=== PATIENT | male | born 1975 | race Caucasian/White ===

== ENCOUNTER 2019-06-22 10:58 | Inpatient (IN) | payer OTHER ==
[~2019-06-22] VITALS: Ht 177.8 cm; Wt 185.0 kg
[2019-06-22 11:58] LABS: BASO # 0.1 (0.0-0.2); BASO % 0.7 % (0.0-2.0); EOS # 0.1 (0.0-0.7); EOS % 0.5 % (0-4.0); GRAN # 7.9 (1.4-6.5); GRAN % 79.1 % (42.2-75.2); HEMOGLOBIN 12.9 g/dl (13.5-18.0); LYMPH # 0.9 (1.2-3.4); LYMPH % 9.2 % (20.0-51.0); MEAN CELL VOLUME 106 fl (80.0-100.0); MEAN CORPUSCULAR HEMOGLOBIN 38 pg (27.0-31.0); MEAN CORPUSCULAR HGB CONC 36 g/dl (33.0-37.0); MEAN PLATELET VOLUME 12.9 fl (7.4-10.4); MONO % 9.7 % (1.7-9.3); RED BLOOD COUNT 3.41 M/mm3 (4.20-5.60)
[2019-06-22 12:00] VITALS: BP 127/88; PULSE 91; TEMP 98.5
[2019-06-22 12:02] LABS: HEMATOCRIT 36.2 % (42.0-52.0)
[2019-06-22 12:04] LABS: PLATELET COUNT 11 K/mm3 (130-400)
[2019-06-22 12:11] LABS: INR 1.3 (0.8-3.0); PROTHROMBIN TIME 14.3 SECONDS (9.7-12.8)
[2019-06-22 12:13] LABS: ALBUMIN 3.2 gm/dL (3.5-5.0); CALCIUM 8.6 mg/dL (8.4-10.2); CREATININE, serum 1.02 (0.66-1.25); TOTAL PROTEIN 7.4 gm/dL (6.4-8.2)
[2019-06-22 12:15] LABS: POTASSIUM 2.7 mmol/L (3.4-5.0)
[2019-06-22 12:17] LABS: IRON,SERUM 113 ug/dL (35-150)
[2019-06-22 12:26] LABS: TOTAL IRON BINDING CAPACITY 156 ug/dL (261-462)
[2019-06-22 17:32] VITALS: BP 101/60; PULSE 94; TEMP 98.6
--- NOTE | 2019-06-22 18:43 | NUR ---
Patient arrived to floorat approximately 1230. Patient has remained alert and oriented during the day, answers questions appropriately. Patient left the floor for CT via wheelchair, returned, and continued to deny needs. Patient was able to provide a stool sample that was collected and sent to lab. Urine is very dark brown. Patient denies further needs at this time, call light within reach
[2019-06-22 20:38] VITALS: BP 107/67; PULSE 89; TEMP 98.8
--- NOTE | 2019-06-22 21:45 | NUR ---
Resting in bed. Assessment complete. Lungs clear. Heart sounds normal. bowels active x4. Pulses present. Bilateral lower extremity edema +1. INT left AC without complications. Reports 4/10 back pain. Order obtained for 400mg ibuprofen from Dr. Shetty and provided to patient. Denies other needs. Call light in reach.
[2019-06-22 22:40] VITALS: BP 109/65; PULSE 97; TEMP 98.8
[2019-06-23] VITALS (11 sets, daily range): BP systolic 102–136; BP diastolic 65–85; PULSE 87–101; TEMP 97.3–99
--- NOTE | 2019-06-23 01:00 | NUR ---
Resting in bed. Denies needs. Call light in reach.
--- NOTE | 2019-06-23 03:45 | NUR ---
Reports 5/10 back pain. Provided with PRN ibuprofen. Denies other needs at this time. Call light in reach.
[2019-06-23 04:52] LABS: CERULOPLASMIN 47 mg/dL (20-60)
[2019-06-23 05:24] LABS: FOLATE (FOLIC ACID) 4.1 ng/mL (>=4.0)
--- NOTE | 2019-06-23 06:34 | NUR ---
Patient required ibuprofen x2 for back pain. Otherwise uneventful night. Resting in bed this AM. Call light in reach.
--- NOTE | 2019-06-23 07:17 | NUR ---
Report given to RENETTA Somers
[2019-06-23 08:05] LABS: ALBUMIN 2.6 gm/dL (3.5-5.0); BILIRUBIN,TOTAL 17.1 mg/dL (0.0-1.0); CALCIUM 8.2 mg/dL (8.4-10.2); CREATININE, serum 0.87 (0.66-1.25); POTASSIUM 3.2 mmol/L (3.4-5.0); TOTAL PROTEIN 6.3 gm/dL (6.4-8.2)
[2019-06-23 08:09] LABS: BASO # 0.1 (0.0-0.2); BASO % 0.8 % (0.0-2.0); EOS # 0.1 (0.0-0.7); EOS % 1.3 % (0-4.0); GRAN # 5.4 (1.4-6.5); GRAN % 68.1 % (42.2-75.2); LYMPH # 1.5 (1.2-3.4); LYMPH % 18.5 % (20.0-51.0); MEAN CELL VOLUME 105 fl (80.0-100.0); MEAN CORPUSCULAR HGB CONC 36 g/dl (33.0-37.0); MONO # 0.9 (0.1-0.6); MONO % 10.7 % (1.7-9.3); RED BLOOD COUNT 2.87 M/mm3 (4.20-5.60); REDCELL DISTRIBUTION WIDTH-CV 15.9 % (11.5-14.5)
[2019-06-23 08:15] LABS: ALPHA 1 ANTITRYPSIN TOTAL 257.4 mg/dL (())
[2019-06-23 08:20] LABS: INR 1.3 (0.8-3.0); PROTHROMBIN TIME 14.5 SECONDS (9.7-12.8)
[2019-06-23 08:29] LABS: HEMATOCRIT 30.2 % (42.0-52.0); HEMOGLOBIN 10.8 g/dl (13.5-18.0); MEAN CORPUSCULAR HEMOGLOBIN 38 pg (27.0-31.0)
[2019-06-23 08:30] LABS: PLATELET COUNT 122 K/mm3 (130-400)
[2019-06-23 10:28] LABS: PERITONEAL -POLYMORPHONUCLEAR 17.3 % (0-25); PERITONEAL FLUID RBC 0 /mm3 (0-0)
--- NOTE | 2019-06-23 16:07 | NUR ---
TAMMI met with the patient to complete initial intake. The patient lives in [place] with his and their daughter. The patient has a CPAP and receives supplies from [facility]. The patient is independent with ADLs. The patient receives medical care and medications at [place] at this time. The patient does not have advanced directives in the EMR but was interested in DPOA-HC form. Form provided. The patient plans to return home at discharge with his providing transportation. Social serivces will continue to monitor for any discharge needs.
--- NOTE | 2019-06-23 20:16 | NUR ---
PATIENT IS ALERT AND ORIENTED. HAD PARACENTESIS FOR ASCITES DIAGNOSIS. COMPLAINED OF LOOSE STOOL. ON PRECAUTION FOR PENDING CDIFF. SCHEDULED FOR EGD AND COLONOSCOPY FOR 06/24/19. ON POTASSIUM PROTOCOL. LOW POTASSIUM 3.0-3.3 TODAY.
--- NOTE | 2019-06-23 20:57 | NUR ---
Reports 8 ABD pain. Provided with PRN morphine. Assessment complete. Lungs clear. Heart sounds normal. Bowels active x4. Pulses strong throughout. Bilateral lower extremity edema +1. INT left AC without complications. Bowel prep started. Denies other needs at this time. Will monitor.
--- NOTE | 2019-06-23 21:30 | NUR ---
Resting in bed. Denies needs. Call light in reach.
[2019-06-24] VITALS (15 sets, daily range): BP systolic 84–147; BP diastolic 37–93; PULSE 92–111; TEMP 97.9–99
--- NOTE | 2019-06-24 00:10 | NUR ---
Reports 8/ ABD pain. Provided with PRN morphine. Continues to work on bowel prep. Denies other needs at this time.
[2019-06-24 00:19] LABS: CLOSTRIDIUM DIFF A/B NEG; CLOSTRIDIUM DIFF A/B INTERP NonToxigenic C.diff
--- NOTE | 2019-06-24 04:41 | NUR ---
Resting in bed. Denies needs. Call light in reach.
[2019-06-24 06:00] LABS: BASO # 0.1 (0.0-0.2); BASO % 0.7 % (0.0-2.0); EOS # 0.1 (0.0-0.7); EOS % 1.1 % (0-4.0); GRAN # 5.8 (1.4-6.5); HEMOGLOBIN 11.1 g/dl (13.5-18.0); LYMPH # 1.6 (1.2-3.4); LYMPH % 18.8 % (20.0-51.0); MEAN CELL VOLUME 105 fl (80.0-100.0); MEAN CORPUSCULAR HEMOGLOBIN 38 pg (27.0-31.0); MEAN CORPUSCULAR HGB CONC 36 g/dl (33.0-37.0); MONO # 0.9 (0.1-0.6); MONO % 10.6 % (1.7-9.3); RED BLOOD COUNT 2.96 M/mm3 (4.20-5.60); REDCELL DISTRIBUTION WIDTH-CV 15.9 % (11.5-14.5)
[2019-06-24 06:01] LABS: HEMATOCRIT 31.2 % (42.0-52.0)
[2019-06-24 06:02] LABS: PLATELET COUNT 83 K/mm3 (130-400)
[2019-06-24 06:07] LABS: INR 1.3 (0.8-3.0); PROTHROMBIN TIME 14.7 SECONDS (9.7-12.8)
[2019-06-24 06:10] LABS: ALBUMIN 2.7 gm/dL (3.5-5.0); BILIRUBIN,TOTAL 19.1 mg/dL (0.0-1.0); CALCIUM 8.4 mg/dL (8.4-10.2); CREATININE, serum 0.81 (0.66-1.25); POTASSIUM 3.3 mmol/L (3.4-5.0); TOTAL PROTEIN 6.7 gm/dL (6.4-8.2)
--- NOTE | 2019-06-24 06:39 | NUR ---
Patient required x2 doses of morphine throughout night. Otherwise uneventful night. Resting in bed this AM. Call light in reach.
--- NOTE | 2019-06-24 07:00 | NUR ---
Report received from RENETTA Myers. pT in bed resting, up to bathroom ad michele to have BM. Completed bowel prep for 1200 EGD/Colon. IVF to LA/C. Resting quietly, tender abdomen to touch especially over liver area. PT is very jaundiced. Resting in bed, will continue to monitor.
--- NOTE | 2019-06-24 07:31 | NUR ---
Report given to RENETTA Ayala
--- NOTE | 2019-06-24 08:00 | NUR ---
Assessment charted. PRN ativan given d/t pt being awake all night with bowel prep, having some tremors and elevated HR. Pt agreeable to ativan. Will continue to monitor.
--- NOTE | 2019-06-24 12:26 | NUR ---
Pt arrived back to room at [facility] from EGD/Colonoscopy. Will get VSS and continue to monitor.
--- NOTE | 2019-06-24 13:13 | NUR ---
Pt called for help, upon entry pt states he is fine, no longer oriented, when asked where he was reply was "i don't know what planet this is", unable to give accurate date as well. Pt now wabbly when ambulating and appears shaking has increased as well. Will continue to monitor.
[2019-06-24 14:59] LABS: CALCIUM 8.2 mg/dL (8.4-10.2); CREATININE, serum 1.04 (0.66-1.25); POTASSIUM 4.1 mmol/L (3.4-5.0)
--- NOTE | 2019-06-24 15:42 | NUR ---
Pt is alert and oriented again, awake and resting, probably confusion was related to ativan, will continue to monitor.
--- NOTE | 2019-06-24 16:25 | NUR ---
[facility] contacted patient by phone as he is in contact precautions. SW addressed patient's alcohol abuse and he advised he is not interested in any resources or services at this time. Patient states "I'm good" and wants to know when he will be able to discharge. SW to continue to follow as needed.
--- NOTE | 2019-06-24 17:48 | NUR ---
Pt resting in bed, denies needs, remains oriented, will give bedside shift report to nightshift nurse who will resume care.
[2019-06-25] VITALS (11 sets, daily range): BP systolic 103–127; BP diastolic 63–78; PULSE 68–115; TEMP 97.6–98.8
--- NOTE | 2019-06-25 04:43 | NUR ---
PATIENT HAS BEEN UP A MAJORITY OF THE NIGHT GOING TO THE BATHROOM. PATIENT IS STILL HAVING SOME LOOSE STOOLS. AFTER SOME MOTRIN AND MORPHINE, HIS PAIN WAS A LITTLE BIT BETTER. PATIENT HAS BEEN SCORING A 4 ON THE CIWA PROTCOL AND NOT RECEVING ATIVAN. PATIENT HAS BEEN ORIENTATED ALL NIGHT LONG. PATIENT REQUESTS THAT THE DOOR BE SHUT BUT BED ALARM IS ON. PATIENT ATE A SANDWICH BOX IN DURING THE SHIFT BECAUSE HE WAS COMPLAINING HE WAS HUNGRY. CALLED FOR AN UPDATE ON THE PATIENT AND I ADVISED HER TO CALL BACK TO GET PERIODICAL UPDATES SINCE SHE SAYS HER IS NOT ALL WITH IT. TRIED TO EXPLAIN HIS SITUATION A COUPLE OF DIFFERENT TIMES BUT SHE KEPT ASKING THE SAME QUESTIONS EVEN AFTER GETTING AN ANSWER THE FIRST TIME. PATIENT DENIES ANY OTHER NEEDS AT THIS TIME AND WILL REPORT OFF TO DAY SHIFT UPON THEIR ARRIVAL
[2019-06-25 08:26] LABS: BASO # 0.1 (0.0-0.2); BASO % 0.6 % (0.0-2.0); EOS # 0.1 (0.0-0.7); EOS % 1.2 % (0-4.0); GRAN # 6.5 (1.4-6.5); GRAN % 73.1 % (42.2-75.2); HEMOGLOBIN 10.9 g/dl (13.5-18.0); LYMPH # 1.4 (1.2-3.4); LYMPH % 15.3 % (20.0-51.0); MEAN CELL VOLUME 106 fl (80.0-100.0); MEAN CORPUSCULAR HEMOGLOBIN 37 pg (27.0-31.0); MEAN CORPUSCULAR HGB CONC 35 g/dl (33.0-37.0); MONO # 0.8 (0.1-0.6); MONO % 8.7 % (1.7-9.3); PLATELET COUNT 99 K/mm3 (130-400); RED BLOOD COUNT 2.95 M/mm3 (4.20-5.60)
[2019-06-25 08:30] LABS: HEMATOCRIT 31.3 % (42.0-52.0)
[2019-06-25 08:47] LABS: ALBUMIN 2.7 gm/dL (3.5-5.0); BILIRUBIN,TOTAL 20.4 mg/dL (0.0-1.0); CALCIUM 8.3 mg/dL (8.4-10.2); CREATININE, serum 0.96 (0.66-1.25); INR 1.2 (0.8-3.0); POTASSIUM 3.6 mmol/L (3.4-5.0); PROTHROMBIN TIME 13.7 SECONDS (9.7-12.8); TOTAL PROTEIN 6.7 gm/dL (6.4-8.2)
--- NOTE | 2019-06-25 18:35 | NUR ---
Pt REPORT RECEIVED FROM SHANITA JACKSON AT BEDSIDE. Pt IS RESTING IN BED PEACEFULLY WITH TV ON. BED ALARM VERIFIED ACTIVATED. EDUCATION TO Pt ON IMPORTANCE OF USING CALL LIGHT TO NOTIFY STAFF OF HIS WANTS/NEEDS BEFORE GETTING OUT OF BED UNASSISTED TO REDUCE RISK OF FALLS AND INJURY. Pt STATES UNDERSTANDING. CALL LIGHT IS WITHIN REACH. WILL CONTINUE TO MONITOR.
[2019-06-26] VITALS (7 sets, daily range): BP systolic 107–137; BP diastolic 61–83; PULSE 50–101; TEMP 97.8–98.8
--- NOTE | 2019-06-26 01:13 | NUR ---
Pt has been consistent with use of call light to obtain assistance with am,bulating to the restroom secondary to fall risk. Pt remains on detox protocols with no s/s of distress noted this shift. Pt is A&Ox4 and is easily able to make his wants/needs known. Pt has had multiple bowel movements that have ranged from soft slightly formed/loose to fully formed with no liquid stool noted, no foamy stool noted, and no abnormally foul smelling stool noted. Pt bed alarm remains activated with this scientific writer monitoring to ensure that bed alarm remains on with rounding. Pt is cooperative with care and compliant with medication regimen. Pt remains in stable condition at this time with call light within reach and beverages on his bedside table within reach. Will continue to monitor.
--- NOTE | 2019-06-26 05:45 | NUR ---
Pt has been resting peacefully in bed throughout the shift with no s/s of distress nor symptoms of an adverse detox episode. Pt has remained compliant with call light system. Pt has had numerous bowel movements this shift and no diarrhea nor s/s of c-diff noted. Call light is at Pt side. Will continue to monitor.
--- NOTE | 2019-06-26 06:58 | NUR ---
Pt REPORT GIVEN TO HARLAN JACKSON AT BEDSIDE.
--- NOTE | 2019-06-26 07:30 | NUR ---
PT SET OFF BED ALARM, ENTERED ROOM AND PT WAS ATTEMPTING TO PULL OUT IV. PT SAID HE WAS LEAVING TODAY. I INFORMED HIM THE DOCTOR WOULD HAVE TO SEE HIM BEFORE DISCHARGE. HE SAT DOWN. RENETTA MATOS ENTERED AND PT STATED "THE SURGERY TECH ARE HERE TO PICK ME UP. THEY ARE HERE TO TAKE ME TO [facility]". PT EDUCATED THAT HE WOULD LEAVE IN AFTERNOON. ACCORDING TO RENETTA MATOS HE HAS NOT BEEN CONFUSED OR ACTING IMPULSIVE ALL OF [employer] CONSULT[employer].
--- NOTE | 2019-06-26 09:34 | NUR ---
PT ATTEMPTING TO TURN BED ALARM OFF, DOES NOT USE CALL LIGHT, GETS UP ON HIS OWN. PT STEADY ON HIS FEET. APPEARS CONFUSED. CAME OUT OF ROOM SAYING HE NEEDED TO LEAVE TO GET TO HIS DAUGHTERS BASEBALL GAME. PT REPORTING SOFT FORMED STOOLS. PT JAUNDICED, HR TACHYCARDIC, NO OTHER NEEDS AT THIS TIME. FRESH SPRITE BROUGHT IN, MEDS GIVEN, ASSESSMENT PERFORMED.
[2019-06-26 10:07] LABS: HEMOGLOBIN 10.9 g/dl (13.5-18.0); MEAN CELL VOLUME 107 fl (80.0-100.0); MEAN CORPUSCULAR HEMOGLOBIN 38 pg (27.0-31.0); MEAN CORPUSCULAR HGB CONC 35 g/dl (33.0-37.0); PLATELET COUNT 110 K/mm3 (130-400); RED BLOOD COUNT 2.89 M/mm3 (4.20-5.60); REDCELL DISTRIBUTION WIDTH-CV 16.2 % (11.5-14.5)
[2019-06-26 10:15] LABS: CALCIUM 8.1 mg/dL (8.4-10.2); CREATININE, serum 0.85 (0.66-1.25); POTASSIUM 3.2 mmol/L (3.4-5.0)
[2019-06-26 11:30] LABS: ANISOCYTOSIS 1+; BAND 7 % (0-10); LYMPHOCYTE 14 % (20.0-51.0); NEUTROPHILS 77 % (42.0-75.2); PLATELET ESTIMATE DECREASED (NORMAL)
[2019-06-26] MEDS ORDERED: PROTONIX 40MG T40 MG PO (11:42)
[2019-06-26] MEDS ORDERED: FOLIC ACID 11 MG/TA1 PO (11:42)
[2019-06-26] MEDS ORDERED: THIAMINE 1100 MG/TAB PO (11:43)
[2019-06-26] MEDS ORDERED: FLAGYL500 MG PO (11:44)
--- NOTE | 2019-06-26 12:34 | NUR ---
PT LEFT ON FOOT, REFUSED WHEELCHAIR, TOOK BELONGINGS, EXITED THROUGH ER. DISCHARGE PAPERWORK GIVEN, EDUCATION PROVIDED, IV D/C
[2019-06-27 12:28] LABS: ANTISMOOTH MUSCLE ANTIBODY Negative (Negative)
== END 2019-06-26 12:36 | disposition home or self-care (01) | DRG 433 ==
LOC: MEDICAL 10:58
PROVIDERS: Internal Medicine; Internal Medicine Gastroenterology; Physician Assistant; Student in an Organized Health Care Education/Training Program; ADMIT Hospitalist
PROC: 0W9G3ZX Drainage of Peritoneal Cavity, Percutaneous Approach, Diagnostic (ICD-10-PCS; 2019-06-23)
PROC: 0DBL8ZZ Excision of Transverse Colon, Via Natural or Artificial Opening Endoscopic (ICD-10-PCS; principal; 2019-06-24 12:00)
PROC: 0DBE8ZX Excision of Large Intestine, Via Natural or Artificial Opening Endoscopic, Diagnostic (ICD-10-PCS; 2019-06-24 12:00)
DX: K70.11 Alcoholic hepatitis with ascites (principal); E87.3 Alkalosis; E87.1 Hypo-osmolality and hyponatremia; K76.0 Fatty (change of) liver, not elsewhere classified; I10 Essential (primary) hypertension; F10.10 Alcohol abuse, uncomplicated; E87.6 Hypokalemia; D12.3 Benign neoplasm of transverse colon; K64.0 First degree hemorrhoids; D69.6 Thrombocytopenia, unspecified; D53.9 Nutritional anemia, unspecified; E83.119 Hemochromatosis, unspecified; K21.9 Gastro-esophageal reflux disease without esophagitis; R16.0 Hepatomegaly, not elsewhere classified; R68.81 Early satiety; E87.8 Other disorders of electrolyte and fluid balance, not elsewhere classified; R53.81 Other malaise; R19.7 Diarrhea, unspecified; F17.290 Nicotine dependence, other tobacco product, uncomplicated; Z89.022 Acquired absence of left finger(s)
CPT/HCPCS: 99223-AI; 99232-AI; 99233-AI; 99239; J2060; J2270; J2704; J2765; J3430; J3480; J7030; J7131; Q9967

== ENCOUNTER → 2019-08-01 | Outpatient (CLI) | payer OTHER ==
[~2019-08-01] VITALS: Ht 175.3 cm; Wt 89.1 kg
[~2019-08-01] MED LIST: ALDACTONE 25MG25 M1 PO; DILAUDID 2MG TAB2 MG PO; FLAGYL500 MG PO; FOLIC ACID 11 MG/TA1 PO; LASIX 40MG TABL40 MG PO; NATURE'S BLEND100 M2 PO; NORVASC 5MG5 MG/TAB PO; PROTONIX 40MG T40 MG PO; QUESTRAN LI4 GM/5 GM PO; QUESTRAN4 GM/9 GM PO; THIAMINE 1100 MG/TAB PO; VIAGRA100 M1; ZOLOFT 25MG25 MG PO; ZYRTEC 10MG10 MG PO
[2019-08-01 13:51] VITALS: BP 121/76; PULSE 106
[2019-08-01 15:15] VITALS: BP 113/71; PULSE 88
[2019-08-01 16:46] LABS: PERITONEAL -POLYMORPHONUCLEAR 14.9 % (0-25); PERITONEAL FLUID RBC 0 /mm3 (0-0)
== END ==
LOC: COL.RAD 13:35
PROVIDERS: Internal Medicine Gastroenterology
DX: R18.8 Other ascites (principal)

== ENCOUNTER 2019-08-16 08:36 | Outpatient (CLI) | payer OTHER ==
[~2019-08-16] VITALS: Ht 175.3 cm; Wt 85.1 kg
[2019-08-16 08:49] VITALS: BP 131/83; PULSE 102
[2019-08-16 10:39] VITALS: BP 109/73; PULSE 88; TEMP 97.8
[2019-08-16 11:03] LABS: PERITONEAL -POLYMORPHONUCLEAR 13.9 % (0-25); PERITONEAL FLUID RBC 0 /mm3 (0-0)
== END 2019-08-16 15:30 | disposition home or self-care (01) ==
LOC: COL.RAD 08:36
PROVIDERS: Internal Medicine Gastroenterology
DX: K70.11 Alcoholic hepatitis with ascites (principal)
CPT/HCPCS: P9047

== ENCOUNTER → 2019-08-29 | Outpatient (CLI) | payer OTHER ==
[~2019-08-29] VITALS: Ht 175.3 cm; Wt 80.7 kg
[2019-08-29 12:11] VITALS: BP 116/81; PULSE 96
--- NOTE | 2019-08-29 12:24 | NUR ---
PT TAKEN BACK FOR PROCEDURE. REFUSED ALBUMIN INFUSION
[2019-08-29 13:22] VITALS: BP 115/72; PULSE 97
--- NOTE | 2019-08-29 13:40 | NUR ---
PT WAS TAKEN TO POV AND FRIEND DROVE HOME
[2019-08-29 14:48] LABS: PERITONEAL -POLYMORPHONUCLEAR 13.6 % (0-25); PERITONEAL FLUID RBC 0 /mm3 (0-0)
== END ==
LOC: COL.RAD 11:44
PROVIDERS: Internal Medicine Gastroenterology
DX: K70.11 Alcoholic hepatitis with ascites (principal)
CPT/HCPCS: 19804

== ENCOUNTER → 2019-09-08 | Outpatient (CLI) | payer OTHER ==
[~2019-09-08] VITALS: Ht 175.3 cm; Wt 75.4 kg
[2019-09-08 12:14] VITALS: BP 108/69; PULSE 111
[2019-09-08 13:15] VITALS: BP 98/56; PULSE 97
[2019-09-08 13:36] LABS: PERITONEAL -POLYMORPHONUCLEAR 9.3 % (0-25); PERITONEAL FLUID RBC 0 /mm3 (0-0)
== END ==
LOC: COL.RAD 11:53
PROVIDERS: Internal Medicine Gastroenterology
DX: K70.11 Alcoholic hepatitis with ascites (principal)

== ENCOUNTER 2019-09-19 12:01 | Outpatient (CLI) | payer OTHER ==
[~2019-09-19] VITALS: Ht 175.3 cm; Wt 72.6 kg
[2019-09-19 12:12] VITALS: BP 110/65; PULSE 101
[2019-09-19 13:29] LABS: PERITONEAL -POLYMORPHONUCLEAR 14.8 % (0-25); PERITONEAL FLUID RBC 1000 /mm3 (0-0)
[2019-09-19 14:54] VITALS: BP 101/54; PULSE 87
== END 2019-09-19 15:15 | disposition home or self-care (01) ==
LOC: COL.RAD 12:01
PROVIDERS: Internal Medicine Gastroenterology
DX: K70.11 Alcoholic hepatitis with ascites (principal)
CPT/HCPCS: P9047

== ENCOUNTER 2019-09-28 11:49 | Outpatient (CLI) | payer OTHER ==
[~2019-09-28] VITALS: Ht 175.3 cm; Wt 73.1 kg
[2019-09-28 12:00] VITALS: BP 106/67; PULSE 101
[2019-09-28 13:09] LABS: PERITONEAL -POLYMORPHONUCLEAR 15.9 % (0-25); PERITONEAL FLUID RBC 1000 /mm3 (0-0)
[2019-09-28 13:15] VITALS: BP 106/54; PULSE 72
--- NOTE | 2019-09-28 13:15 | NUR ---
Guerita JACKSON inserted 22 gauge IV to right FA.
--- NOTE | 2019-09-28 13:51 | NUR ---
INT discontinued intact by Guerita JACKSON
== END 2019-09-28 13:51 | disposition home or self-care (01) ==
LOC: COL.RAD 11:49
PROVIDERS: Internal Medicine Gastroenterology
DX: K70.11 Alcoholic hepatitis with ascites (principal)
CPT/HCPCS: P9047

== ENCOUNTER 2019-10-11 08:57 | Outpatient (CLI) | payer OTHER ==
[~2019-10-11] VITALS: Ht 175.3 cm; Wt 72.3 kg
[2019-10-11] MEDS ORDERED: LOMOTIL 0.025 M1 TAB PO (09:10)
[2019-10-11] MEDS ORDERED: KLOR-CON SPRIN10 MEQ PO (09:13)
[2019-10-11 09:15] VITALS: BP 119/67; PULSE 107
[2019-10-11 10:54] VITALS: BP 107/69; PULSE 82; TEMP 98.4
[2019-10-11 11:16] LABS: PERITONEAL -POLYMORPHONUCLEAR 9.2 % (0-25); PERITONEAL FLUID RBC 0 /mm3 (0-0)
== END 2019-10-11 15:02 | disposition home or self-care (01) ==
LOC: COL.RAD 08:57
PROVIDERS: Internal Medicine Gastroenterology
DX: K70.11 Alcoholic hepatitis with ascites (principal)
CPT/HCPCS: P9047

== ENCOUNTER 2019-10-26 08:02 | Outpatient (CLI) | payer OTHER ==
[~2019-10-26] VITALS: Ht 175.3 cm; Wt 73.4 kg
[~2019-10-26 08:02] MED LIST changes: +KLOR-CON SPRIN10 MEQ PO; +LOMOTIL 0.025 M1 TAB PO
[2019-10-26 08:18] VITALS: BP 100/68; PULSE 89
[2019-10-26 09:33] VITALS: BP 98/58; PULSE 90; TEMP 98.9
[2019-10-26 09:56] LABS: PERITONEAL FLUID RBC 0 /mm3 (0-0)
== END 2019-10-26 10:54 | disposition home or self-care (01) ==
LOC: COL.RAD 08:02
PROVIDERS: Internal Medicine Gastroenterology
DX: K70.11 Alcoholic hepatitis with ascites (principal)
CPT/HCPCS: P9047

== ENCOUNTER 2019-11-10 11:43 | Outpatient (CLI) | payer OTHER ==
[~2019-11-10] VITALS: Ht 175.3 cm; Wt 71.9 kg
[2019-11-10 12:00] VITALS: BP 107/58; PULSE 83
[2019-11-10 14:35] VITALS: BP 90/56; PULSE 73; TEMP 98.8
[2019-11-10 16:15] VITALS: BP 95/61
== END 2019-11-10 16:22 | disposition home or self-care (01) ==
LOC: COL.RAD 11:43
DX: K70.11 Alcoholic hepatitis with ascites (principal)
CPT/HCPCS: P9047

== ENCOUNTER 2019-11-18 12:50 | Outpatient (CLI) | payer OTHER ==
[~2019-11-18] VITALS: Ht 175.3 cm; Wt 63.2 kg
[2019-11-18] MEDS ORDERED: ELIQUIS 5MG PO (12:58)
[2019-11-18] MEDS ORDERED: LOMOTIL 0.025 M1 TAB PO (13:00)
[2019-11-18] MEDS ORDERED: NICODERM C21 MG/PATC TD (13:01)
[2019-11-18 13:04] VITALS: BP 109/69; PULSE 69
[2019-11-18 14:58] VITALS: BP 91/59; PULSE 89
== END 2019-11-18 15:50 | disposition home or self-care (01) ==
LOC: COL.RAD 12:50
DX: K70.11 Alcoholic hepatitis with ascites (principal)
CPT/HCPCS: P9047

== ENCOUNTER 2019-11-25 11:43 | Outpatient (CLI) | payer OTHER ==
[~2019-11-25] VITALS: Ht 175.3 cm; Wt 68.0 kg
[2019-11-25 12:07] VITALS: BP 108/64; PULSE 108
[2019-11-25 14:02] VITALS: BP 123/68; PULSE 98; TEMP 97.5
== END 2019-11-25 19:03 | disposition home or self-care (01) ==
LOC: COL.RAD 11:43
DX: K70.11 Alcoholic hepatitis with ascites (principal)
CPT/HCPCS: P9047

== ENCOUNTER → 2019-11-25 | Outpatient (CLI) | payer OTHER ==
[~2019-11-25] MED LIST changes: +ELIQUIS 5MG PO; +NICODERM C21 MG/PATC TD
[2019-11-25 13:55] LABS: PERITONEAL FLUID RBC 1000 /mm3 (0-0)
== END | disposition still patient (30) ==
LOC: COL.RAD 08:00 → EUO 13:30 → COL.RAD 12-02 12:00
PROVIDERS: Internal Medicine Gastroenterology
DX: K70.11 Alcoholic hepatitis with ascites (principal)

== ENCOUNTER → 2019-12-12 | Outpatient (CLI) | payer OTHER ==
[~2019-12-12] VITALS: Ht 175.3 cm; Wt 66.9 kg
[2019-12-12 11:57] VITALS: BP 115/64; PULSE 118
[2019-12-12 13:25] VITALS: BP 123/80; PULSE 110
[2019-12-12 13:36] LABS: PERITONEAL -POLYMORPHONUCLEAR 20.5 % (0-25); PERITONEAL FLUID RBC 0 /mm3 (0-0)
== END ==
LOC: COL.RAD 11:42
PROVIDERS: Internal Medicine Gastroenterology
DX: K70.11 Alcoholic hepatitis with ascites (principal)

== ENCOUNTER → 2019-12-19 | Outpatient (CLI) | payer OTHER ==
[~2019-12-19] VITALS: Ht 175.3 cm; Wt 65.3 kg
[2019-12-19 11:41] VITALS: BP 100/50; PULSE 103
--- NOTE | 2019-12-19 12:12 | NUR ---
Procedure cancelled, not enough fluid in abdomen to drain. Pt out to car per ambulation.
== END ==
LOC: COL.RAD 11:29
DX: K70.11 Alcoholic hepatitis with ascites (principal)

== ENCOUNTER → 2019-12-26 | Outpatient (CLI) | payer OTHER ==
[~2019-12-26] VITALS: Ht 175.3 cm; Wt 67.1 kg
[2019-12-26 11:56] VITALS: BP 113/58; PULSE 111
--- NOTE | 2019-12-26 12:17 | NUR ---
pt back to holding area not enough fluid to drain. Pt encouraged to call doctor and see if can be seen sooner. Pt out to car per ambulation.
--- NOTE | 2019-12-26 13:27 | NUR ---
Dr Gómezs office notified of pts status and asked if they could push up his appt due to pts condition. Informed of not draining any fluid from abdomen for the past two weeks and his decreasing O2 sats. Reported pt is not eating or drinking much and when he does he vomits almost immediately after. Informed of dizzines upon standing. Staff stated they would talk to Dr Gómez and see about getting him earlier if possible. Called and informed pt of Dr Gómez's office possibly calling to get him in earlier.
== END ==
LOC: COL.RAD 11:35
DX: K70.11 Alcoholic hepatitis with ascites (principal)

== ENCOUNTER 2020-01-02 11:28 | Outpatient (CLI) | payer OTHER ==
[~2020-01-02] VITALS: Ht 175.3 cm; Wt 71.7 kg
[2020-01-02 11:43] VITALS: BP 127/74; PULSE 100
[2020-01-02 12:47] VITALS: BP 121/74; PULSE 98
[2020-01-02 13:23] LABS: PERITONEAL -POLYMORPHONUCLEAR 11.1 % (0-25); PERITONEAL FLUID RBC 0 /mm3 (0-0)
== END 2020-01-03 16:13 ==
LOC: COL.RAD 11:28
PROVIDERS: Internal Medicine Gastroenterology
DX: K70.11 Alcoholic hepatitis with ascites (principal)

== ENCOUNTER → 2020-01-09 | Outpatient (CLI) | payer OTHER ==
[~2020-01-09] VITALS: Ht 175.3 cm; Wt 67.2 kg
[2020-01-09 12:08] VITALS: BP 113/64; PULSE 108
[2020-01-09 22:17] LABS: PERITONEAL -POLYMORPHONUCLEAR 12.2 % (0-25); PERITONEAL FLUID RBC 1000 /mm3 (0-0)
== END ==
LOC: COL.RAD 11:45
PROVIDERS: Internal Medicine Gastroenterology
DX: K70.11 Alcoholic hepatitis with ascites (principal)

== ENCOUNTER → 2020-01-16 | Outpatient (CLI) | payer OTHER ==
[~2020-01-16] VITALS: Ht 175.3 cm; Wt 68.5 kg
[2020-01-16 11:44] VITALS: BP 116/76; PULSE 111
[2020-01-16 13:05] VITALS: BP 127/73; PULSE 108
[2020-01-16 13:23] LABS: PERITONEAL -POLYMORPHONUCLEAR 10.7 % (0-25); PERITONEAL FLUID RBC 0 /mm3 (0-0)
== END ==
LOC: COL.RAD 11:27
PROVIDERS: Internal Medicine Gastroenterology
DX: K70.11 Alcoholic hepatitis with ascites (principal)

== ENCOUNTER 2020-01-23 18:24 | Inpatient (IN) | payer OTHER ==
[~2020-01-23] VITALS: Ht 175.3 cm; Wt 64.1 kg
[2020-01-23 19:15] LABS: INR 1.7 (0.8-3.0); PROTHROMBIN TIME 19.2 SECONDS (9.7-12.8)
[2020-01-23 19:19] LABS: ALBUMIN 3.1 gm/dL (3.5-5.0); BILIRUBIN,TOTAL 4.7 mg/dL (0.0-1.0); C-REACTIVE PROTEIN 1.5 mg/dL (0.0-0.9); CALCIUM 8.7 mg/dL (8.4-10.2); CREATININE, serum 2.48 (0.66-1.25); POTASSIUM 3.9 mmol/L (3.4-5.0); TOTAL PROTEIN 8.6 gm/dL (6.4-8.2)
[2020-01-23 19:54] LABS: BASO % 0.7 % (0.0-2.0); EOS # 0.1 (0.0-0.7); GRAN # 2.6 (1.4-6.5); GRAN % 58.8 % (42.2-75.2); LYMPH # 1.1 (1.2-3.4); LYMPH % 24.4 % (20.0-51.0); MEAN CELL VOLUME 115 fl (80.0-100.0); MEAN CORPUSCULAR HGB CONC 32 g/dl (33.0-37.0); MONO # 0.6 (0.1-0.6); MONO % 12.9 % (1.7-9.3); PLATELET COUNT 166 K/mm3 (130-400); RED BLOOD COUNT 1.38 M/mm3 (4.20-5.60); REDCELL DISTRIBUTION WIDTH-CV 21.1 % (11.5-14.5)
[2020-01-23 20:27] LABS: HEMOGLOBIN 5.1 g/dl (13.5-18.0); MEAN CORPUSCULAR HEMOGLOBIN 37 pg (27.0-31.0)
[2020-01-23 20:28] LABS: HEMATOCRIT 15.9 % (42.0-52.0)
[2020-01-23 22:22] VITALS: BP 97/60; PULSE 92; TEMP 98
[2020-01-23 22:30] VITALS: BP 100/59; PULSE 88
[2020-01-23 22:45] VITALS: BP 98/63; PULSE 91; TEMP 99
[2020-01-23 22:58] VITALS: BP 108/65; PULSE 93; TEMP 97.8
[2020-01-23 23:00] VITALS: BP 108/65; PULSE 97; TEMP 97.8
--- NOTE | 2020-01-23 23:30 | NUR ---
Pt arrived to medical unit room 310 from ED at 2245. PRBCs infusing to left AC IV at 100 ml/hr upon arrival. Report received from ED RN, reported vitals have remained stable over course of transfusion. Vitals stable at this time and rate increased to 150 ml/hr. Heart RRR, lungs CTA, A&Ox4. Abdomen firm and distended. Pt reports constant chronic abdominal pain. Redness noted to scrotum with light reddened areas bilaterally to lower back/hip. Pt reports pruritus over entire body, worse in reddened areas. Oriented pt to room, admission assessments and med rec completed. Dynamap set up to record vitals Q15min. Call light in reach. Will continue to monitor.
[2020-01-24] VITALS (19 sets, daily range): BP systolic 83–115; BP diastolic 45–73; PULSE 87–98; TEMP 97.7–98.4
--- NOTE | 2020-01-24 01:05 | NUR ---
First unit PRBCs completed 54. Second unit started at this time. Vitals remain stable and pt w/o complaint. Continuing to monitor.
--- NOTE | 2020-01-24 06:26 | NUR ---
2 units PRBCs infused without S/S complications. Vitals have remained stable. Resting in bed at this time.
[2020-01-24 06:47] LABS: ALBUMIN 2.3 gm/dL (3.5-5.0); BILIRUBIN,TOTAL 4.6 mg/dL (0.0-1.0); CALCIUM 8.1 mg/dL (8.4-10.2); CREATININE, serum 2.3 (0.66-1.25); POTASSIUM 4.2 mmol/L (3.4-5.0); TOTAL PROTEIN 6.9 gm/dL (6.4-8.2)
[2020-01-24 07:31] LABS: BASO % 1.1 % (0.0-2.0); EOS # 0.1 (0.0-0.7); GRAN # 1.9 (1.4-6.5); GRAN % 51.7 % (42.2-75.2); LYMPH # 1.1 (1.2-3.4); LYMPH % 30.9 % (20.0-51.0); MEAN CORPUSCULAR HGB CONC 33 g/dl (33.0-37.0); MONO # 0.5 (0.1-0.6); RED BLOOD COUNT 1.88 M/mm3 (4.20-5.60)
[2020-01-24 08:29] LABS: HEMATOCRIT 19.6 % (42.0-52.0); HEMOGLOBIN 6.4 g/dl (13.5-18.0); MEAN CORPUSCULAR HEMOGLOBIN 34 pg (27.0-31.0)
[2020-01-24 08:30] LABS: MEAN CELL VOLUME 104 fl (80.0-100.0)
[2020-01-24 08:31] LABS: PLATELET COUNT 148 K/mm3 (130-400)
--- NOTE | 2020-01-24 09:11 | NUR ---
Pt assessment completed and charted. pt laying in bed, a&o, independent in room, on room air, Rt lunug schwab cta, LLL diminished. BS active. Abdomen distended but soft to touch. INT LAC flushes w/o issue. Pulses strong bilaterally. Pt denies pain, dizzines, SOB, N/V/D. Pt denies abd pain at this time. No further needs expressed.
--- NOTE | 2020-01-24 09:51 | NUR ---
TAMMI and physician's aide met with the patient to discuss discharge plan. The patient lives in [place] with his , Sharona (ph#[phone]). He reports independence with ADLs and has a cane. The patient receives primary care and his medications from [facility]. He states his provider a Thurman just left and he was switched to a new one. The patient does not have a DPOA-HC in EMR, but he states that he does have one completed and that his is his DPOA-HC. The patient plans to return home with his upon discharge. No additional needs at this time.
--- NOTE | 2020-01-24 14:15 | NUR ---
Tele called, pt not back on tele after MRI. Pt never had tele orders but came up with tele box last night. This nurse contacted physician, pt does NOT need to be on tele at this time. Will take box down.
--- NOTE | 2020-01-24 14:57 | NUR ---
Pt receiving unit of blood, started at 60ml/hr to LAC w/o issue. VS obtained prior, soft BP, pt has had soft bps, appears baseline. This nurse remaining at bedside first 15 min. Blood product verified w/ RENETTA Garcia.
--- NOTE | 2020-01-24 15:15 | NUR ---
This nurse still at pt bedside, blood transfusion running. Pt denies any dizziness, PONCE, palpitations. Pt afebrile. Rate increased to 100ml/hr. Pt tolerating well. SBP in 80s, taken twice. Pt asymptomatic. Pt on continuous 15min VS monitoring.
--- NOTE | 2020-01-24 16:48 | NUR ---
Pt laying in bed, transfusion still in progress. SBP still soft. Pt asymptomatic. No further needs at this time.
--- NOTE | 2020-01-24 19:08 | NUR ---
Received report from Emely. Seen patient awake, lying in bed. He is alert and oriented. Informed him regarding bowel preparation after we're done with the shift change. No needs at this time.
--- NOTE | 2020-01-24 19:35 | NUR ---
Explained to patient regarding bowel preparation. Informed him to call me if he already have a bowel movement to see if it's clear. Informed consent signed by patient for his procedure tomorrrow. He said he already had bowel preparation and endoscopy before so he knows what to expect. He denies pain. Lungs are clear. INT on left AC.
[2020-01-24 20:15] LABS: HEMATOCRIT 24.5 % (42.0-52.0); HEMOGLOBIN 8.1 g/dl (13.5-18.0)
--- NOTE | 2020-01-24 21:00 | NUR ---
Informed patient regarding his latest hemoglobin result. He states he didn't have any bowel movement yet but he feels like it is coming out soon. Patient was able to finish about 800ml of bowel prep already. Will come back and check on him again.
--- NOTE | 2020-01-24 23:00 | NUR ---
Patient states he already had 3 bowel movement and showed to me the latest BM that he had. It was clear watery in light yellow/brown in color.
[2020-01-25 04:27] VITALS: BP 105/61; PULSE 96; TEMP 98.2
--- NOTE | 2020-01-25 04:30 | NUR ---
Patient states he got 5 more watery stools. He denies pain. Maintained on NPO.
[2020-01-25 06:34] LABS: BASO % 0.8 % (0.0-2.0); EOS # 0.1 (0.0-0.7); EOS % 3.6 % (0-4.0); GRAN # 1.9 (1.4-6.5); GRAN % 52.4 % (42.2-75.2); LYMPH # 1.1 (1.2-3.4); LYMPH % 29.2 % (20.0-51.0); MEAN CELL VOLUME 100 fl (80.0-100.0); MEAN CORPUSCULAR HGB CONC 34 g/dl (33.0-37.0); MONO # 0.5 (0.1-0.6); MONO % 13.7 % (1.7-9.3); RED BLOOD COUNT 2.28 M/mm3 (4.20-5.60); REDCELL DISTRIBUTION WIDTH-CV 24.3 % (11.5-14.5)
[2020-01-25 06:44] LABS: ALBUMIN 2.5 gm/dL (3.5-5.0); BILIRUBIN,TOTAL 7.2 mg/dL (0.0-1.0); CALCIUM 8.2 mg/dL (8.4-10.2); CREATININE, serum 2.19 (0.66-1.25); POTASSIUM 3.9 mmol/L (3.4-5.0); TOTAL PROTEIN 7.1 gm/dL (6.4-8.2)
[2020-01-25 07:12] LABS: HEMATOCRIT 22.8 % (42.0-52.0); HEMOGLOBIN 7.8 g/dl (13.5-18.0); MEAN CORPUSCULAR HEMOGLOBIN 34 pg (27.0-31.0)
[2020-01-25 07:14] LABS: PLATELET COUNT 132 K/mm3 (130-400)
[2020-01-25 09:00] VITALS: BP 106/71; PULSE 90; TEMP 97.8
--- NOTE | 2020-01-25 10:10 | NUR ---
Pt awake and alert upon entry, just returned from ultrasound and paracentisis. No C/O pain at this time, shift assessments complete, left Pt call light in reach.
[2020-01-25 10:41] LABS: PERITONEAL -POLYMORPHONUCLEAR 17.8 % (0-25); PERITONEAL FLUID RBC 0 /mm3 (0-0)
[2020-01-25 11:43] VITALS: BP 100/60; PULSE 86; TEMP 97.6
[2020-01-25 16:36] VITALS: BP 95/58; PULSE 84; TEMP 97.7
--- NOTE | 2020-01-25 18:29 | NUR ---
Pt rested in the room today, was off floor this morning for several procedures. No C/O pain today. Tolerating full liquid diet, Pt wants to hold advanceing diet until after breakfast. No other issues noted. VS have remained stable.
[2020-01-25 19:17] VITALS: BP 91/54; PULSE 90; TEMP 98.5
--- NOTE | 2020-01-25 22:02 | NUR ---
PT ALERT AND ORIENTED X 4, ON ROOM AIR, DENIES ANY PAIN/DISCOMFORT. PT INDEPENDENT IN ROOM.
[2020-01-25 23:32] VITALS: BP 93/57; PULSE 92; TEMP 98.7
[2020-01-26 04:16] VITALS: BP 98/59; PULSE 93; TEMP 98.7
[2020-01-26 06:44] LABS: BASO % 0.7 % (0.0-2.0); EOS # 0.2 (0.0-0.7); EOS % 3.7 % (0-4.0); GRAN # 2.2 (1.4-6.5); GRAN % 55.7 % (42.2-75.2); LYMPH # 1.1 (1.2-3.4); LYMPH % 26.7 % (20.0-51.0); MEAN CELL VOLUME 101 fl (80.0-100.0); MEAN CORPUSCULAR HGB CONC 34 g/dl (33.0-37.0); MEAN PLATELET VOLUME 11.7 fl (7.4-10.4); MONO # 0.5 (0.1-0.6); RED BLOOD COUNT 2.17 M/mm3 (4.20-5.60); REDCELL DISTRIBUTION WIDTH-CV 23.5 % (11.5-14.5)
--- NOTE | 2020-01-26 07:19 | NUR ---
report given to Patric Franco.
[2020-01-26 07:48] LABS: HEMATOCRIT 21.9 % (42.0-52.0); HEMOGLOBIN 7.5 g/dl (13.5-18.0); MEAN CORPUSCULAR HEMOGLOBIN 35 pg (27.0-31.0)
[2020-01-26 07:49] LABS: PLATELET COUNT 81 K/mm3 (130-400)
[2020-01-26 08:08] VITALS: BP 107/65; PULSE 96; TEMP 98.6
[2020-01-26] MEDS ORDERED: PROTONIX 40MG T40 MG PO (09:18)
--- NOTE | 2020-01-26 09:43 | NUR ---
Pt awake and alert this mornring, no C/O pain. Shift assessments complete, left Pt bed in lowest position, [facility] in reach.
--- NOTE | 2020-01-26 11:10 | NUR ---
Pt discharged to home, discussed discharge information with Pt. Escorted Pt to entrance, Pt left with spouse via private auto.
== END 2020-01-26 11:10 | disposition home or self-care (01) | DRG 432 ==
LOC: COL.ER 18:24 → MEDICAL 21:00
PROVIDERS: Emergency Medicine; Hospitalist; Internal Medicine Gastroenterology; Nurse Practitioner; Student in an Organized Health Care Education/Training Program; ADMIT Student in an Organized Health Care Education/Training Program
PROC: 0DB98ZX Excision of Duodenum, Via Natural or Artificial Opening Endoscopic, Diagnostic (ICD-10-PCS; 2020-01-25)
PROC: 0W9G3ZZ Drainage of Peritoneal Cavity, Percutaneous Approach (ICD-10-PCS; 2020-01-25)
PROC: 0DBL8ZX Excision of Transverse Colon, Via Natural or Artificial Opening Endoscopic, Diagnostic (ICD-10-PCS; principal; 2020-01-25 08:00)
PROC: 06L38CZ Occlusion of Esophageal Vein with Extraluminal Device, Via Natural or Artificial Opening Endoscopic (ICD-10-PCS; 2020-01-25 08:00)
DX: K70.9 Alcoholic liver disease, unspecified (principal); E43 Unspecified severe protein-calorie malnutrition; I85.11 Secondary esophageal varices with bleeding; K29.71 Gastritis, unspecified, with bleeding; E87.1 Hypo-osmolality and hyponatremia; E87.2 Acidosis; K76.6 Portal hypertension; K70.11 Alcoholic hepatitis with ascites; D12.3 Benign neoplasm of transverse colon; K76.0 Fatty (change of) liver, not elsewhere classified; Z20.828 Contact with and (suspected) exposure to other viral communicable diseases; K31.89 Other diseases of stomach and duodenum; N18.9 Chronic kidney disease, unspecified; K64.0 First degree hemorrhoids; I78.1 Nevus, non-neoplastic; H15.89 Other disorders of sclera; K52.9 Noninfective gastroenteritis and colitis, unspecified; Z68.20 Body mass index [BMI] 20.0-20.9, adult; D63.1 Anemia in chronic kidney disease; B35.6 Tinea cruris; F17.210 Nicotine dependence, cigarettes, uncomplicated; Z86.718 Personal history of other venous thrombosis and embolism
CPT/HCPCS: 99223-AI; 99231-AI; 99232-AI; 99239; A9585; C9113; J2370; J2704; J3010; J7030; P9016; P9047

== ENCOUNTER → 2020-01-30 | Outpatient (CLI) | payer OTHER ==
[~2020-01-30] VITALS: Ht 175.3 cm; Wt 69.0 kg
[2020-01-30 11:46] VITALS: BP 119/69; PULSE 99
--- NOTE | 2020-01-30 12:37 | NUR ---
pt doesnt have enough fluid to removed this time. Pt out to car per ambulation. Procedure canceled.
== END ==
LOC: COL.RAD 11:32
DX: K70.11 Alcoholic hepatitis with ascites (principal)

== ENCOUNTER 2020-02-07 13:16 | Inpatient (IN) | payer OTHER ==
[2020-02-07] VITALS (51 sets, daily range): BP systolic 12–113; BP diastolic 62–78; PULSE 108–116; TEMP 97.7–98.6; O2SAT 81–99
[~2020-02-07] VITALS: Ht 175.3 cm; Wt 72.4 kg
[2020-02-07 14:36] LABS: BASO % 0.6 % (0.0-2.0); EOS # 0.1 (0.0-0.7); EOS % 1.1 % (0-4.0); GRAN % 76.8 % (42.2-75.2); LYMPH # 0.9 (1.2-3.4); LYMPH % 13.3 % (20.0-51.0); MEAN CELL VOLUME 101 fl (80.0-100.0); MEAN CORPUSCULAR HGB CONC 34 g/dl (33.0-37.0); MEAN PLATELET VOLUME 14.2 fl (7.4-10.4); MONO # 0.5 (0.1-0.6); MONO % 7.7 % (1.7-9.3); PLATELET COUNT 64 K/mm3 (130-400); RED BLOOD COUNT 1.65 M/mm3 (4.20-5.60); REDCELL DISTRIBUTION WIDTH-CV 19.8 % (11.5-14.5)
[2020-02-07 14:38] LABS: INR 2.2 (0.8-3.0); PROTHROMBIN TIME 25.2 SECONDS (9.7-12.8)
[2020-02-07 14:40] LABS: PARTIAL THROMBOPLASTIN TIME 44.6 SECONDS (26.0-37.0)
[2020-02-07 14:48] LABS: ALCOHOL(ethanol),MEDICAL < 10 mg/dL
[2020-02-07 14:58] LABS: HEMOGLOBIN 5.7 g/dl (13.5-18.0); MEAN CORPUSCULAR HEMOGLOBIN 35 pg (27.0-31.0)
[2020-02-07 14:59] LABS: HEMATOCRIT 16.7 % (42.0-52.0)
[2020-02-07 15:04] LABS: ALANINE AMINOTRANSFERASE 40 U/L (4-49); ALBUMIN 2.9 gm/dL (3.5-5.0); ALKALINE PHOSPHATASE 224 U/L (50-136); ANION GAP 12 mmol/L (7-16); AST,SGOT 169 U/L (15-37); BILIRUBIN,TOTAL 16.1 mg/dL (0.0-1.0); BLOOD UREA NITROGEN 26 mg/dL (9-20); C-REACTIVE PROTEIN 1.4 mg/dL (0.0-0.9); CALCIUM 8.8 mg/dL (8.4-10.2); CARBON DIOXIDE 19 mmol/L (22-30); CHLORIDE 106 mmol/L (98-107); CREATININE, serum 1.92 (0.66-1.25); GLUCOSE 146 mg/dL (74-106); LIPASE 49 U/L (23-300); POTASSIUM 4.2 mmol/L (3.4-5.0); SODIUM 136 mmol/L (137-145); TOTAL PROTEIN 8.3 gm/dL (6.4-8.2)
--- NOTE | 2020-02-07 18:00 | NUR ---
RECEIVED REPORT FROM RENETTA SINGLETARY IN ER AWAITING ARRIVAL TO ICU 4.
--- NOTE | 2020-02-07 18:25 | NUR ---
DR LEE AT BEDSIDE FOR ASSESSMENT
[2020-02-07 23:38] LABS: HEMATOCRIT 17.9 % (42.0-52.0)
--- NOTE | 2020-02-07 23:39 | NUR ---
critcal lab of hemoglobin 6.0 after 1 unit of PRBC reported to Dr. Morgan of [facility].
[2020-02-08] VITALS (223 sets, daily range): BP systolic 96–117; BP diastolic 62–78; PULSE 103–110; TEMP 9.1; O2SAT 53–100
--- NOTE | 2020-02-08 06:55 | NUR ---
PT DID NOT URINATE THE WHOLE NIGHT, BLADDER SCANNED AND SHOWED 550-680 ML. PT UP IN THE BATHROOM TRYING TO VOID AT THIS TIME.
--- NOTE | 2020-02-08 06:58 | NUR ---
PT ONLY VOIDED 50 ML. WILL PASS THIS ALONG TO ONCOMING DAY SHIFT NURSE.
[2020-02-08 07:16] LABS: INR 1.8 (0.8-3.0); PROTHROMBIN TIME 20.7 SECONDS (9.7-12.8)
[2020-02-08 07:19] LABS: ALBUMIN 2.8 gm/dL (3.5-5.0); BILIRUBIN,TOTAL 14.5 mg/dL (0.0-1.0); CALCIUM 8.8 mg/dL (8.4-10.2); CREATININE, serum 1.85 (0.66-1.25); POTASSIUM 3.5 mmol/L (3.4-5.0); TOTAL PROTEIN 7.9 gm/dL (6.4-8.2)
[2020-02-08 07:40] LABS: BASO % 0.8 % (0.0-2.0); EOS # 0.4 (0.0-0.7); EOS % 7.3 % (0-4.0); GRAN % 63.4 % (42.2-75.2); MEAN CELL VOLUME 97 fl (80.0-100.0); MEAN CORPUSCULAR HGB CONC 34 g/dl (33.0-37.0); MEAN PLATELET VOLUME 12.9 fl (7.4-10.4); MONO # 0.3 (0.1-0.6); MONO % 7.1 % (1.7-9.3); RED BLOOD COUNT 2.17 M/mm3 (4.20-5.60); REDCELL DISTRIBUTION WIDTH-CV 19.1 % (11.5-14.5)
[2020-02-08 07:41] LABS: HEMATOCRIT 21.1 % (42.0-52.0); HEMOGLOBIN 7.1 g/dl (13.5-18.0); MEAN CORPUSCULAR HEMOGLOBIN 33 pg (27.0-31.0)
[2020-02-08 07:42] LABS: PLATELET COUNT 66 K/mm3 (130-400)
--- NOTE | 2020-02-08 07:53 | NUR ---
REPORT GIVEN TO RENETTA MENCHACA.
--- NOTE | 2020-02-08 09:19 | NUR ---
TAMMI met with the patient to discuss discharge plan. The patient lives in [place] with his , Sharona (ph#[phone]). He reports independence with ADLs and has a cane. The patient receives primary care from [facility]. He states that his provider just transferred and he is unsure who is new provider will be. He receives his medications on [place] and he reports no difficulties obtaining his meds. The patient does not have a DPOA-HC in EMR, but he states that he does have one completed and that it designates his . The patient plans to return home with his upon discharge. The patient is to tentatively transfer up to the medical floor today. SW attempted to contact the patient's to review d/c plan. SW left her a voicemail.
--- NOTE | 2020-02-08 09:50 | NUR ---
report given to RENETTA Mcgovern on medical floor
--- NOTE | 2020-02-08 10:04 | NUR ---
PT transported to medical floor room 357 via wheel chair. PT up SBA from wheelchair to medical bed without incident. Care assumed by RENETTA Mcgovern and PT floor care technician.
--- NOTE | 2020-02-08 12:00 | NUR ---
Pt arrived to room 357, he is A/O. He currently reports abdominal pain 7/10. Reports some nausea, and states he had a watery stool this am. Requesting Sprite to drink. Lungs CTA, on RA. Abdomen distended and hypoactive BS. HRR. Pt's skin is very jaundiced as well as sclera of eyes. POC discussed with patient and his who verbalized understanding. No needs at this time. Call light within reach.
--- NOTE | 2020-02-08 14:06 | NUR ---
The patient's , Sharona, returned SW's phone call. Sharona reports no concerns about the patient returning back home with her upon discharge.
[2020-02-08 17:14] LABS: HEMATOCRIT 19.4 % (42.0-52.0); HEMOGLOBIN 6.5 g/dl (13.5-18.0)
[2020-02-09] VITALS (8 sets, daily range): BP systolic 91–109; BP diastolic 52–72; PULSE 104–113; TEMP 97.8–98.6
[2020-02-09 06:25] LABS: BASO % 0.9 % (0.0-2.0); EOS # 0.3 (0.0-0.7); EOS % 7.3 % (0-4.0); LYMPH % 20.3 % (20.0-51.0); MEAN CELL VOLUME 97 fl (80.0-100.0); MEAN CORPUSCULAR HGB CONC 34 g/dl (33.0-37.0); MEAN PLATELET VOLUME 13.5 fl (7.4-10.4); MONO # 0.3 (0.1-0.6); MONO % 7.1 % (1.7-9.3); RED BLOOD COUNT 2.41 M/mm3 (4.20-5.60); REDCELL DISTRIBUTION WIDTH-CV 17.4 % (11.5-14.5)
[2020-02-09 06:28] LABS: CALCIUM 8.7 mg/dL (8.4-10.2); CREATININE, serum 1.82 (0.66-1.25); POTASSIUM 3.7 mmol/L (3.4-5.0)
[2020-02-09 06:35] LABS: HEMATOCRIT 23.4 % (42.0-52.0); HEMOGLOBIN 7.9 g/dl (13.5-18.0); MEAN CORPUSCULAR HEMOGLOBIN 33 pg (27.0-31.0)
[2020-02-09 06:41] LABS: PLATELET COUNT 39 K/mm3 (130-400)
[2020-02-09 06:52] LABS: INR 1.9 (0.8-3.0); PROTHROMBIN TIME 21.1 SECONDS (9.7-12.8)
--- NOTE | 2020-02-09 10:14 | NUR ---
Pt assessment complete. Pt is laying in bed upon entry, he is A/O x4. His breathing is even and unlabored on RA. Pt denies SOB. States his abdomen is just sore today. No pain. Denies N/V/D. POC discussed with patient who verbalizes understanding. No further needs at this time. Call light within reach.
[2020-02-09] MEDS ORDERED: QUESTRAN4 GM/9 GM PO (11:50)
[2020-02-09] MEDS ORDERED: CORGARD20 MG PO (11:50)
[2020-02-09] MEDS ORDERED: MEPHYTON 5MG5 MG/TAB PO (11:50)
--- NOTE | 2020-02-09 12:30 | NUR ---
Discharge paperwork discussed with patient all questions answered at this time. IV to LAC dc'd catheter tip intact.
--- NOTE | 2020-02-09 13:15 | NUR ---
Pt left facility at this time.
[2020-02-13] MEDS ORDERED: QUESTRAN4 GM/9 GM PO (12:10)
[2020-02-13] MEDS ORDERED: CORGARD20 MG PO (12:11)
[2020-02-13] MEDS ORDERED: MEPHYTON 5MG5 MG/TAB PO (12:11)
== END 2020-02-09 13:15 | disposition home or self-care (01) | DRG 441 ==
LOC: COL.ER 13:16 → ICU 15:16 → MEDICAL 15:16 → ICU 17:28 → MEDICAL 02-08 11:33
PROVIDERS: Emergency Medicine; Internal Medicine Gastroenterology; Student in an Organized Health Care Education/Training Program; ADMIT Student in an Organized Health Care Education/Training Program
PROC: 0DJ08ZZ Inspection of Upper Intestinal Tract, Via Natural or Artificial Opening Endoscopic (ICD-10-PCS; principal; 2020-02-08 07:30)
DX: K76.6 Portal hypertension (principal); K22.11 Ulcer of esophagus with bleeding; E87.1 Hypo-osmolality and hyponatremia; R65.10 Systemic inflammatory response syndrome (SIRS) of non-infectious origin without acute organ dysfunction; I85.10 Secondary esophageal varices without bleeding; K31.89 Other diseases of stomach and duodenum; K70.40 Alcoholic hepatic failure without coma; K70.11 Alcoholic hepatitis with ascites; K29.70 Gastritis, unspecified, without bleeding; D53.9 Nutritional anemia, unspecified; D69.6 Thrombocytopenia, unspecified; R19.7 Diarrhea, unspecified; D63.1 Anemia in chronic kidney disease; F17.210 Nicotine dependence, cigarettes, uncomplicated; N18.9 Chronic kidney disease, unspecified; Z86.718 Personal history of other venous thrombosis and embolism
CPT/HCPCS: 99222-AI; 99232-AI; 99239; C9113; J0696; J2270; J2405; J2704; J7030; P9016

== ENCOUNTER → 2020-02-13 | Outpatient (CLI) | payer OTHER ==
[~2020-02-13] VITALS: Ht 149.9 cm; Wt 72.3 kg
[~2020-02-13] MED LIST changes: +CORGARD20 MG PO; +MEPHYTON 5MG5 MG/TAB PO
[2020-02-13 12:16] VITALS: BP 106/60; PULSE 85
[2020-02-13 14:43] LABS: PERITONEAL FLUID RBC 0 /mm3 (0-0)
[2020-02-13 14:45] VITALS: BP 96/65; PULSE 80
--- NOTE | 2020-02-13 15:45 | NUR ---
infusion completed, no c/o, iv d'cd. Pt discharged ambulatory
== END ==
LOC: COL.RAD 11:00
PROVIDERS: Internal Medicine Gastroenterology
DX: K70.11 Alcoholic hepatitis with ascites (principal)
CPT/HCPCS: P9047

== ENCOUNTER → 2020-02-27 | Outpatient (CLI) | payer OTHER ==
[~2020-02-27] VITALS: Ht 149.9 cm; Wt 71.5 kg
[2020-02-27 12:08] VITALS: BP 107/56; PULSE 84
[2020-02-27 13:35] VITALS: BP 97/67; PULSE 90
[2020-02-27 13:59] LABS: PERITONEAL -POLYMORPHONUCLEAR 18.9 % (0-25); PERITONEAL FLUID RBC 2000 /mm3 (0-0)
[2020-02-27 15:45] VITALS: BP 77/57; PULSE 88
== END ==
LOC: EUO 11:35 → COL.RAD 11:35
PROVIDERS: Internal Medicine Gastroenterology
DX: K70.11 Alcoholic hepatitis with ascites (principal)
CPT/HCPCS: P9047

== ENCOUNTER → 2020-03-16 | Outpatient (CLI) | payer OTHER ==
[~2020-03-16] VITALS: Ht 149.9 cm; Wt 68.0 kg
[~2020-03-16] MED LIST changes: +VITAMIN A10k PO; +XIFAXAN550 MG PO; +cipro
[2020-03-16 08:54] VITALS: BP 85/51; PULSE 75
[2020-03-16 09:50] VITALS: BP 84/55; PULSE 74
== END ==
LOC: COL.RAD 08:40
DX: K70.11 Alcoholic hepatitis with ascites (principal)

== ENCOUNTER 2020-04-03 14:15 | Outpatient (CLI) | payer OTHER ==
[~2020-04-03] VITALS: Ht 149.9 cm; Wt 67.8 kg
[2020-04-03 14:30] VITALS: BP 101/71; PULSE 65
[2020-04-03 15:41] VITALS: BP 93/62; PULSE 61
== END 2020-04-23 16:50 | disposition home or self-care (01) ==
LOC: COL.RAD 14:15
DX: K70.11 Alcoholic hepatitis with ascites (principal)
CPT/HCPCS: 19804

== ENCOUNTER 2020-04-20 11:53 | Outpatient (CLI) | payer OTHER ==
[~2020-04-20] VITALS: Ht 180.3 cm; Wt 71.3 kg
[2020-04-20 12:29] VITALS: BP 95/53; PULSE 77
[2020-04-20 13:58] VITALS: BP 92/59; PULSE 63; TEMP 98
== END 2020-04-23 16:49 | disposition home or self-care (01) ==
LOC: COL.RAD 11:53
DX: K70.11 Alcoholic hepatitis with ascites (principal)
CPT/HCPCS: P9047